=== PATIENT | female | born 1950 | race Caucasian/White ===

== ENCOUNTER 2018-05-05 13:10 | Outpatient (CLI) | payer MEDICARE ==
[2018-05-05 13:47] LABS: BASOPHILS # (AUTO) 0.1 K/uL (0.0-8.0); BASOPHILS % (AUTO) 0.7 % (0.0-2.0); EOSINOPHILS # (AUTO) 0.3 K/uL (0.0-0.7); EOSINOPHILS % (AUTO) 3.7 % (0.0-7.0); HEMATOCRIT 43.9 % (31.2-41.9); HEMOGLOBIN 15.2 g/dL (10.9-14.3); LYMPHOCYTES # (AUTO) 1.9 K/uL (20.0-40.0); MEAN CORPUSCULAR HEMOGLOBIN 34.7 uug (24.7-32.8); MEAN CORPUSCULAR HGB CONC 35 g/dL (32.3-35.6); MONOCYTES # (AUTO) 0.5 K/uL (2.0-10.0); MONOCYTES % (AUTO) 6.6 % (0.0-11.0); NEUTROPHILS # (AUTO) 4.7 K/uL (1.8-8.9); PLATELET COUNT (AUTO) 235 K/uL (179-408); RED BLOOD CELL COUNT(AUTO) 4.39 MIL/uL (3.63-4.92); WHITE BLOOD COUNT (AUTO) 7.5 K/uL (3.8-11.8)
[2018-05-05 13:50] LABS: CREATININE 0.8 mg/dL (0.6-1.3); POTASSIUM 4.3 mmol/L (3.5-5.1)
== END 2018-05-05 23:59 | disposition home or self-care (01) ==
LOC: LAB 13:10
DX: Z01.818 Encounter for other preprocedural examination (principal); H26.8 Other specified cataract
CPT/HCPCS: 36415; 85025

== ENCOUNTER 2019-02-01 01:41 | Emergency (ER) | payer MEDICARE ==
[~2019-02-01] VITALS: Ht 172.7 cm; Wt 121.1 kg
[2019-02-01] MEDS ORDERED: ONDANSETRON 4 MG/2 ML VIAL ONE (02:12)
[2019-02-01] MEDS ORDERED: MORPHINE SULFATE 4 MG/1 ML DISP.SYRIN ONE (02:12)
[2019-02-01] MEDS: MORPHINE SULFATE 4 MG/1 ML DISP.SYRIN IV ONE (02:14)
[2019-02-01] MEDS: ONDANSETRON 4 MG/2 ML VIAL IV ONE (02:14)
--- NOTE | 2019-02-01 02:26 | NUR ---
patient back from CT
--- NOTE | 2019-02-01 03:04 | NUR ---
Patient discharged to home in stable conditon. Written and verbal after care instructions given. Patient verbalizes understanding of instructions. exit care package and personal belongings taken with the patient. VSS. patient escorted out with Dr. Rebollar
[2019-02-01 03:05] VITALS: BP 133/77
[2019-02-01 03:08] LABS: BASOPHILS % (AUTO) 0.4 % (0.0-2.0); EOSINOPHILS # (AUTO) 0.3 K/uL (0.0-0.7); EOSINOPHILS % (AUTO) 4.6 % (0.0-7.0); HEMATOCRIT 42.7 % (31.2-41.9); HEMOGLOBIN 14.5 g/dL (10.9-14.3); LYMPHOCYTES # (AUTO) 1.8 K/uL (20.0-40.0); LYMPHOCYTES % (AUTO) 24.1 % (20.5-51.5); MEAN CORPUSCULAR HEMOGLOBIN 33.7 uug (24.7-32.8); MEAN CORPUSCULAR HGB CONC 34 g/dL (32.3-35.6); MEAN CORPUSCULAR VOLUME 99.5 fL (75.5-95.3); MONOCYTES # (AUTO) 0.5 K/uL (2.0-10.0); MONOCYTES % (AUTO) 6.6 % (0.0-11.0); NEUTROPHILS # (AUTO) 4.8 K/uL (1.8-8.9); NEUTROPHILS % (AUTO) 64.3 % (38.5-71.5); PLATELET COUNT (AUTO) 232 K/uL (179-408); RED BLOOD CELL COUNT(AUTO) 4.29 MIL/uL (3.63-4.92); WHITE BLOOD COUNT (AUTO) 7.5 K/uL (3.8-11.8)
[2019-02-01 03:19] LABS: BILIRUBIN,TOTAL 0.2 mg/dL (0.2-1.0); CREATININE 1.1 mg/dL (0.6-1.3); POTASSIUM 3.8 mmol/L (3.5-5.1); TOTAL PROTEIN, SERUM 7.4 g/dL (6.4-8.2)
[2019-02-01 04:11] LABS: THYROID STIMULATING HORMONE 4.965 mIU/mL (0.358-3.740)
== END 2019-02-01 03:06 | disposition home or self-care (01) ==
LOC: ER 01:43
DX: S79.912A Unspecified injury of left hip, initial encounter (principal); E03.9 Hypothyroidism, unspecified; W06.XXXA Fall from bed, initial encounter; Y93.89 Activity, other specified; Y92.89 Other specified places as the place of occurrence of the external cause; Y99.8 Other external cause status
CPT/HCPCS: 36415; 72192; 73502; 80053; 84443; 85025; 96374; 96375; 99284; J2270; J2405; A4663

== ENCOUNTER 2019-07-06 17:28 | Inpatient (IN) | payer MEDICARE ==
[~2019-07-06] VITALS: Ht 167.6 cm; Wt 88.9 kg
[2019-07-06 21:09] VITALS: BP 146/55
[2019-07-06] MEDS ORDERED: SENNOSIDES 1 TABLET PO SCH (21:45)
[2019-07-06] MEDS ORDERED: OXYCODONE HCL 5 MG TABLET PO SCH (21:45)
[2019-07-06] MEDS ORDERED: ACETAMINOPHEN 325 MG TABLET PO PRN (21:45)
[2019-07-06] MEDS ORDERED: ONDANSETRON HCL 4 MG TABLET PO PRN (21:45)
[2019-07-06] MEDS ORDERED: Z GUARD REMEDY PASTE 57 GM TUBE TOP PRN (22:00)
[2019-07-06] MEDS: OXYCODONE HCL 5 MG TABLET PO PRN (23:00)
--- NOTE | 2019-07-06 23:16 | NUR ---
Patient arrived with EMT at 19:15. Patient arrived with stable vitals, no signs of distress, no SOB, even labored breathing O2 saturation 96% room air. Skin warm and dry to touch. Patient is alert and oriented times 3 to 4 but forgetful. Initial patient assessment completed and notified Dr. Harrington and Dr. Green about new patient admission. Medication reconciliation completed after notifying Dr Green. Family, and daughter came to visit patient. Patient denies any abuse, but stated misunderstanding with . Patient is being followed by APS. Patient complains of 7/10 pain in her hips related to KERRIE, gave patient 5mg of Oxy to relieve pain. Safety measure and fall precautions are in place, low bed, bed alarm, bed rails x2, call light with patient reach. All needs are attended to and all items are within patient reach. . Addendum: 07/07/19 at 0033 by QI BROWN RN Patient arrived at 1950 not 1915
[2019-07-07] MEDS ORDERED: TRAZODONE 50 MG TABLET ONE (00:14)
[2019-07-07] MEDS: TRAZODONE 50 MG TABLET PO PRN ×2 (00:20→23:40)
--- NOTE | 2019-07-07 00:25 | NUR ---
Patient was given pain medication Oxy at 23:00 for pain 7/10 in both hips. Patient reassessed and medication was not effective. Gave patient Trazodone 50 mg 1 tablet as requested by patient.
[2019-07-07 04:30] VITALS: BP 143/66
[2019-07-07] MEDS: MIRALAX 17 GM POWD.PACK PO SCH (08:48)
[2019-07-07] MEDS: DOCUSATE SODIUM 100 MG CAPSULE PO SCH ×2 (08:48→16:40)
[2019-07-07] MEDS: OXYCODONE HCL 5 MG TABLET PO PRN ×2 (08:48→22:22)
[2019-07-07] MEDS: LIDOCAINE 5% PATCH TD SCH (08:49)
[2019-07-07] MEDS: ASPIRIN 81 MG TAB.CHEW PO SCH (08:51)
[2019-07-07] MEDS: LEVOTHYROXINE SODIUM 125 MCG TABLET PO SCH (08:52)
[2019-07-07] MEDS: CIPROFLOXACIN HCL 250 MG TABLET PO SCH ×2 (08:53→20:24)
[2019-07-07 09:00] VITALS: BP 123/56
[2019-07-07] MEDS ORDERED: POLYETHYLENE GLYCOL 3350 238 GM POWDER PO SCH (09:00)
[2019-07-07] MEDS ORDERED: LEVOTHYROXINE SODIUM 125 MCG TABLET PO SCH (09:00)
[2019-07-07] MEDS ORDERED: CIPROFLOXACIN HCL 250 MG TABLET PO SCH (12:15)
--- NOTE | 2019-07-07 12:35 | NUR ---
PSYCH EVAL IS ORDERED, DR BROWN IS AWARE Addendum: 07/07/19 at 1743 by YGPSY CHU RN RN INTELLIGENCE SPECIALIST KT HAS SEEN THE PATIENT AND IS AWARE OF PATIENT CONCERNS
--- NOTE | 2019-07-07 12:39 | NUR ---
PSYCHOLOGIST OLLIE RILEY MADE AWARE ABOUT PSYCHOLOGIST SESSION.
--- NOTE | 2019-07-07 13:07 | NUR ---
PATIENT IS ALERT, ORIENTED X3-4, VERBALLY RESPONSIVE, NO SOB, RESP EVEN NONLABORED,SKIN WARM AND DRY TO TOUCH, NO DISTRESS NOTED, PATIENT TOLERATED PT, OT WELL, SITTING AT THE EDGE OF THE BED, EATING LUNCH, SAT DOWN ON CHAIR WELL.
[2019-07-07 16:27] VITALS: BP 118/54
--- NOTE | 2019-07-07 17:44 | NUR ---
PATIENT IS EXAMINED BY DR ALCANTARA. PATIENT IS ALERT, ORIENTED X3-4, VERBALLY RESPONSIVE, NO SOB, RESP EVEN NONLABORED,SKIN WARM AND DRY TO TOUCH, NO DISTRESS NOTED, SITTING IN CHAIR, ASSISTED TO BATHROOM. MAX ASSIST WITH ADLS. NEEDS ATTENDED TIMELY, CALL LIGHT WITH IN REACH
--- NOTE | 2019-07-07 18:37 | NUR ---
PATIENT NOTED TRYING TO TRANSFER HERSELF FROM WHEELCHAIR TO BED, REENFORCED SAFETY MEASURES WITH PATIENT. REINFORCED TO WAIT FOR NURSE, CALL FOR HEATER WORKER, FOR SAFETY, WILL ENDORSE TO NEXT SHIFT ACCORDINGLY.
--- NOTE | 2019-07-07 21:02 | NUR ---
Patient received in bed resting, no signs of distress, no signs of SOB, patient denies any pain. No complaints at the time. Patient is alert and oriented time 4. Patient is verbally responsive and able to communicate her needs. Patient vitals stable, temperature 97.8 and blood pressure 125/58. Patient received her antibiotics. Patient is dry, skin intact and feet are elevated with two pillows and patient has SCD pump on. Patient was turned and repositioned onto her side. All safety measures in place, bed locked and in low position, side rails up x2, and call light within patient reach and bed alarm is on. Continue to monitor patient throughout the night.
[2019-07-07 21:27] VITALS: BP 125/58
--- NOTE | 2019-07-07 23:17 | NUR ---
Patient was in pain, patient states pain level 7/10 in her hips. Gave patient OXY 5 MG. Will continue to to assess pain level and keep patient comfortable.
--- NOTE | 2019-07-07 23:45 | NUR ---
Patient requested Trazodone for pain and to help her sleep through the night. Patient stated pain level 7/10 in her hips. Gave patient Trazodone at 2340. Attended to and provided patient with comfort measure to help alleviate pain, changed her positioned and provide more pillows around her. Patient is comfortable and resting in bed.
[2019-07-08 04:35] VITALS: BP 146/69
--- NOTE | 2019-07-08 06:45 | NUR ---
Patient slept well. Vital signs are stable patient showed no signs of acute distress. Fall precautions in place, low position, locked, x2 rails, bed alarm on, and patient call light within reach. Continue plan of care will endorse the report to the next shift.
[2019-07-08] MEDS: LEVOTHYROXINE SODIUM 125 MCG TABLET PO SCH (06:56)
[2019-07-08] MEDS: MIRALAX 17 GM POWD.PACK PO SCH (08:33)
[2019-07-08] MEDS: OXYCODONE HCL 5 MG TABLET PO PRN (08:33)
[2019-07-08] MEDS: DOCUSATE SODIUM 100 MG CAPSULE PO SCH ×2 (08:33→17:00)
[2019-07-08] MEDS: ASPIRIN 81 MG TAB.CHEW PO SCH (08:33)
[2019-07-08] MEDS: LIDOCAINE 5% PATCH TD SCH (08:34)
[2019-07-08] MEDS: CIPROFLOXACIN HCL 250 MG TABLET PO SCH ×2 (08:44→20:33)
[2019-07-08 09:00] VITALS: BP 128/75
[2019-07-08] MEDS: IBUPROFEN 200 MG TABLET PO PRN (13:30)
--- NOTE | 2019-07-08 15:41 | NUR ---
PATIENT IS ALERT, ORIENTED X4, VERBALLY RESPONSIVE, NO SOB, RESP EVEN NONLABORED,SKIN WARM AND DRY TO TOUCH, NO DISTRESS NOTED, PATIENT STAYED IN CHAIR MOST OF THE TIME, ASSISTED TO THE BATHROOM,TOLERATED PT, OT SERVICES WELL, AMBULATED WITH PT, ABLE TO TRANSFER WITH SUPERVISION FROM WHEELCHAIR TO BED, VISE VERSA, WHEELCHAIR TO TOILET SEAT, KEPT PATIENT CLEAN AND DRY, NO SKIN ISSUES NOTED AT THIS TIME, ABLE TO COMMUNICATE HER NEEDS WELL, REINFORCED SAFETY PRECAUTIONS, PATIENT VERBALIZED UNDERSTANDING OF IT.
[2019-07-08 18:32] VITALS: BP 128/70
--- NOTE | 2019-07-08 19:35 | NUR ---
Sleeping during initial rounds. No s/s of respiratory distress. Safety measure and fall precaution maintained. Continue care as planned.
[2019-07-08 19:47] VITALS: BP 114/40
[2019-07-08] MEDS: TRAZODONE 50 MG TABLET PO PRN (20:33)
[2019-07-09] MEDS: OXYCODONE HCL 5 MG TABLET PO PRN ×4 (00:45→20:08)
[2019-07-09 05:42] VITALS: BP 133/58
--- NOTE | 2019-07-09 05:45 | NUR ---
Shift End Report: VS stable. Medicated once for (L) hip pain with relief. No further complaint presented. Good skin/butch care rendered after each B/B incontinence. Skin remain intact. No s/s of adverse reaction noted from Cipro medication. Encouraged increased oral fluid intake as tolerated. All needs attended and met. Slept in between care. No significant event reported all night. Continue current rehab plan of care..
[2019-07-09] MEDS: LEVOTHYROXINE SODIUM 125 MCG TABLET PO SCH (06:13)
[2019-07-09] MEDS: DOCUSATE SODIUM 100 MG CAPSULE PO SCH ×2 (08:48→16:24)
[2019-07-09] MEDS: ASPIRIN 81 MG TAB.CHEW PO SCH (08:48)
[2019-07-09] MEDS: MIRALAX 17 GM POWD.PACK PO SCH (08:49)
[2019-07-09] MEDS: CIPROFLOXACIN HCL 250 MG TABLET PO SCH ×2 (08:49→20:08)
[2019-07-09] MEDS: LIDOCAINE 5% PATCH TD SCH (08:49)
[2019-07-09 10:43] VITALS: BP 136/43
--- NOTE | 2019-07-09 13:05 | NUR ---
Received patient awake in bed. Apert and orientedx3-4. Hard of hearing, in stable condition. Assisted to bathroom with walker. Continue therapy for increase endurance and strenght, participates in ADL. tolerated well. Continue pain management prior to therapy and if needed. Patient verbalize that she feels progress in therapy. Seen and examined by psychologist this morning. no new order. Continue on fall risk precaution maintained. will continue monitor
--- NOTE | 2019-07-09 13:31 | NUR ---
INTERDISCIPLINARY TEAM CONFERENCE
--- NOTE | 2019-07-09 13:47 | NUR ---
INDIVIDUALIZED PLAN OF CARE
[2019-07-09] MEDS: IBUPROFEN 200 MG TABLET PO PRN (15:31)
[2019-07-09 16:47] VITALS: BP 116/40
--- NOTE | 2019-07-09 19:55 | NUR ---
Received patient in bed. AAO x3. Not in acute distress or SOB. On room air. Able to make needs known. Complained of pain on her right hip and knee, rated 6/10. Physical assessment done. Fall prevention observed. Safety measures maintained. Bed in low and lock position, side rails up x2 for safety. Call light and frequently used items within reach. Continue to monitor.
[2019-07-09 20:27] VITALS: BP 121/58
[2019-07-10 05:01] VITALS: BP 100/40
--- NOTE | 2019-07-10 05:13 | NUR ---
End of the shift note: Patient was stable throughout the shift and have a good sleep during the night. Not in acute distress or SOB. On room air. Complained of pain on her right hip and knee, rated 5/10, Oxycodone 5 mg administered and effective. DVT Pump in place. Assisted her to the bathroom as needed. Kept her clean and dry. Physical assessment done. All due medication given and well tolerated. All needs attended promptly. Fall prevention observed. Safety measures maintained. Bed in low and lock position, side rails up x2 for safety. Call light and frequently used items within reach. Continue to monitor and will endorse to oncoming nurse accordingly.
[2019-07-10] MEDS: LEVOTHYROXINE SODIUM 125 MCG TABLET PO SCH (06:37)
[2019-07-10 08:00] VITALS: BP_SYST 115; BP_SYST 116; BP_DIAS 50; BP_DIAS 60
[2019-07-10] MEDS: ASPIRIN 81 MG TAB.CHEW PO SCH (09:02)
[2019-07-10] MEDS: DOCUSATE SODIUM 100 MG CAPSULE PO SCH ×2 (09:03→16:30)
[2019-07-10] MEDS: CIPROFLOXACIN HCL 250 MG TABLET PO SCH ×2 (09:04→20:23)
[2019-07-10] MEDS: LIDOCAINE 5% PATCH TD SCH (09:04)
[2019-07-10] MEDS: MIRALAX 17 GM POWD.PACK PO SCH (09:04)
[2019-07-10] MEDS: OXYCODONE HCL 5 MG TABLET PO PRN ×2 (10:02→22:45)
[2019-07-10 17:16] VITALS: BP 119/57
--- NOTE | 2019-07-10 18:36 | NUR ---
Patient is AAO x 3-4 with episodes of forgetfulness noted during care. NO SOB or any acute distress noted. Vital signs taken and stable for patient. Afebrile. Due medications administered as ordered and scheduled and tolerated well. Patient on OXYIR 5mg PO Q 6hrs PRN for pain mgnt; administered medication before PT/OT x 1 during shift and effective. Patient is with one person max assist and BRP during shift. Able to ambulate with a walker and uses w/c. Skin kept clean and dry. Needs attended and met, safety measures in place, call light left at bed side and will continue with care.
--- NOTE | 2019-07-10 19:42 | NUR ---
Received patient in bed. AAO x3. Not in acute distress or SOB. On room air. Able to make needs known. No Complain of pain at this time. Physical assessment done. Fall prevention observed. Safety measures maintained. Bed in low and lock position, side rails up x2 for safety. Call light and frequently used items within reach. Continue to monitor.
[2019-07-10 20:09] VITALS: BP 122/36
[2019-07-11 04:29] VITALS: BP 125/52
[2019-07-11] MEDS: LEVOTHYROXINE SODIUM 125 MCG TABLET PO SCH (06:09)
--- NOTE | 2019-07-11 06:20 | NUR ---
End of the shift note: Patient was stable throughout the shift and have a good sleep during the night. Not in acute distress or SOB. On room air. Complained of pain on her right hip and knee, rate 7/10, Oxycodone 5 mg administered and effective. DVT Pump in place. Assisted her to the bathroom as needed. Kept her clean and dry. Physical assessment done. All due medication given and well tolerated. All needs attended promptly. Fall prevention observed. Safety measures maintained. Bed in low and lock position, side rails up x2 for safety. Call light and frequently used items within reach. Continue to monitor and will endorse to oncoming nurse accordingly.
[2019-07-11] MEDS: DOCUSATE SODIUM 100 MG CAPSULE PO SCH ×2 (08:41→17:24)
[2019-07-11] MEDS: LIDOCAINE 5% PATCH TD SCH (08:41)
[2019-07-11] MEDS: MIRALAX 17 GM POWD.PACK PO SCH (08:41)
[2019-07-11] MEDS: CIPROFLOXACIN HCL 250 MG TABLET PO SCH ×2 (08:41→20:07)
[2019-07-11] MEDS: ASPIRIN 81 MG TAB.CHEW PO SCH (08:42)
[2019-07-11] MEDS: OXYCODONE HCL 5 MG TABLET PO PRN ×3 (08:42→23:23)
[2019-07-11 09:00] VITALS: BP 122/60
[2019-07-11] MEDS ORDERED: LORAZEPAM 1 MG TABLET PO ONE (14:45)
--- NOTE | 2019-07-11 16:28 | NUR ---
one time order of ativan 1 mg po given for patient agitation and crying per Ar[facility] LAST MARKER orders
[2019-07-11 18:55] VITALS: BP 114/57
[2019-07-11 19:54] VITALS: BP 102/83
--- NOTE | 2019-07-11 20:01 | NUR ---
Received patient sitting in wheelchair. AAO x3. Not in acute distress or SOB. On room air. Able to make needs known. Complained of mild pain at this time. Physical assessment done. Fall prevention observed. Safety measures maintained. Bed in low and lock position, side rails up x2 for safety. Call light and frequently used items within reach. Continue to monitor.
[2019-07-12] MEDS: IBUPROFEN 200 MG TABLET PO PRN (04:07)
[2019-07-12 04:39] VITALS: BP 116/40
[2019-07-12] MEDS: LEVOTHYROXINE SODIUM 125 MCG TABLET PO SCH (06:11)
--- NOTE | 2019-07-12 07:26 | NUR ---
patient noted resting in bed with eyes closed, no facial cues of pain at this time, no signs of distress noted, call light in reach, bed locked and in lowest position, all needs met
[2019-07-12] MEDS: MIRALAX 17 GM POWD.PACK PO SCH (08:04)
[2019-07-12] MEDS: ASPIRIN 81 MG TAB.CHEW PO SCH (08:04)
[2019-07-12] MEDS: DOCUSATE SODIUM 100 MG CAPSULE PO SCH ×2 (08:04→17:00)
[2019-07-12] MEDS: LIDOCAINE 5% PATCH TD SCH (08:04)
[2019-07-12] MEDS: CIPROFLOXACIN HCL 250 MG TABLET PO SCH (08:05)
[2019-07-12] MEDS: OXYCODONE HCL 5 MG TABLET PO PRN ×2 (08:05→21:04)
[2019-07-12 09:00] VITALS: BP 113/57
--- NOTE | 2019-07-12 15:05 | NUR ---
Social Work Note: HAYDEN submitted an Adult Protective Services Report (Intake ID [id number]) on 07/08/2019 at 2:13 PM.
--- NOTE | 2019-07-12 19:23 | NUR ---
BM noted today
--- NOTE | 2019-07-12 19:32 | NUR ---
RECEIVED PATIENT IN BED, ALERT AND VERBALLY RESPONSIVE. AFEBRILE. NO RESPIRATORY OR ACUTE DISTRESS. ABLE TO MAKE NEEDS KNOWN. NO COMPLAINTS OF PAIN AT THIS TIME. WILL CONTINUE TO MONITOR PATIENT AND OBSERVE FALL AND SAFETY PRECAUTIONS.
[2019-07-12 19:33] VITALS: BP 117/55
[2019-07-12 20:30] VITALS: BP 143/63
[2019-07-13] MEDS: OXYCODONE HCL 5 MG TABLET PO PRN ×2 (05:12→20:30)
--- NOTE | 2019-07-13 05:49 | NUR ---
PATIENT HAD INTERMITTENT SLEEP DURING THE NIGHT. ASSISTED TO BATHROOM AND ALSO CHANGING OF INCONTINENCE PADS. KEPT PATIENT WARM, DRY, CLEAN, AND COMFORTABLE. HAD REPORTS OF PAIN FOR BILATERAL HIP, OXYCODONE GIVEN ORDERED. TOLERATED WELL. NOTED WITH EFFECT. FALL AND SAFETY PRECAUTIONS OBSERVED. ALL NEEDS ATTENDED.
[2019-07-13] MEDS: LEVOTHYROXINE SODIUM 125 MCG TABLET PO SCH (06:07)
[2019-07-13 06:10] VITALS: BP 136/57
[2019-07-13 08:00] VITALS: BP 126/53
[2019-07-13] MEDS: DOCUSATE SODIUM 100 MG CAPSULE PO SCH ×2 (09:10→17:36)
[2019-07-13] MEDS: IBUPROFEN 200 MG TABLET PO PRN (09:10)
[2019-07-13] MEDS: ASPIRIN 81 MG TAB.CHEW PO SCH (09:10)
[2019-07-13] MEDS: MIRALAX 17 GM POWD.PACK PO SCH (09:10)
[2019-07-13] MEDS: LIDOCAINE 5% PATCH TD SCH (09:10)
[2019-07-13 16:31] VITALS: BP 146/66
[2019-07-13 20:00] VITALS: BP 131/49
[2019-07-14] MEDS: OXYCODONE HCL 5 MG TABLET PO PRN ×2 (04:05→17:52)
[2019-07-14 05:38] VITALS: BP 151/71
[2019-07-14] MEDS: LEVOTHYROXINE SODIUM 125 MCG TABLET PO SCH (06:44)
[2019-07-14] MEDS: ASPIRIN 81 MG TAB.CHEW PO SCH (08:32)
[2019-07-14] MEDS: LIDOCAINE 5% PATCH TD SCH (08:32)
[2019-07-14] MEDS: DOCUSATE SODIUM 100 MG CAPSULE PO SCH ×3 (08:32→17:00)
[2019-07-14] MEDS: MIRALAX 17 GM POWD.PACK PO SCH ×2 (08:32→08:38)
[2019-07-14] MEDS: IBUPROFEN 200 MG TABLET PO PRN (14:44)
--- NOTE | 2019-07-14 16:42 | NUR ---
NO DISTRESS NOTED, TOLERATED MEALS WELL
[2019-07-14 16:48] VITALS: BP 133/76
--- NOTE | 2019-07-14 19:27 | NUR ---
PATIENT COMPLAINED DYSURIA, AND URGENCY, ORDER OBTAINED FOR URINALYSIS.
[2019-07-14 20:45] VITALS: BP 142/71
--- NOTE | 2019-07-15 00:29 | NUR ---
resting in bed upon rounds. AAOx4 OOB with walker to the BR. Voiding freely. Needs attended. VSS. Denies any pain nor any discomfort. Kept comfortable. Will monitor patient.
[2019-07-15 05:31] VITALS: BP 140/66
[2019-07-15] MEDS: LEVOTHYROXINE SODIUM 125 MCG TABLET PO SCH (06:38)
--- NOTE | 2019-07-15 07:28 | NUR ---
slept well most of the shift. aaox4 VSS. Patient having periods of incontinence of urine x2. Kept clean and dry. Needs attended. Fall precautions maintained. Denies any pain nor any discomfort.
[2019-07-15 08:00] VITALS: BP 121/58
[2019-07-15] MEDS: ASPIRIN 81 MG TAB.CHEW PO SCH (08:02)
[2019-07-15] MEDS: MIRALAX 17 GM POWD.PACK PO SCH (08:03)
[2019-07-15] MEDS: OXYCODONE HCL 5 MG TABLET PO PRN ×3 (08:03→23:48)
[2019-07-15] MEDS: LIDOCAINE 5% PATCH TD SCH (08:03)
[2019-07-15] MEDS: DOCUSATE SODIUM 100 MG CAPSULE PO SCH ×2 (08:03→16:41)
[2019-07-15 09:31] LABS: *BILIRUBIN,URIN NEGATIVE (NEGATIVE); *BLOOD, URINE NEGATIVE (NEGATIVE); *CLARITY,URINE CLEAR (CLEAR); *COLOR,URINE YELLOW (YELLOW); *KETONES,URINE NEGATIVE (NEGATIVE); LEUKOCYTE ESTERASE ,URINE NEGATIVE (NEGATIVE); NITRITE, URINE NEGATIVE (NEGATIVE); PH,URINE 7.5 (5.0-8.0); UGLUCOSE NEGATIVE (NEGATIVE)
--- NOTE | 2019-07-15 11:40 | NUR ---
Received patient awake in bed in stable condition. Clean catch urine collected sent to lab around 8am. Result came back negative of urinalysis. awaiting for culture. Patient continue therapy for increase strenght and endurance. Continue pain management and given this morning prior to therapy tolerated and responsive to therapy. not in distress. will continue monitor
[2019-07-15 16:00] VITALS: BP 129/62
[2019-07-15] MEDS: IBUPROFEN 200 MG TABLET PO PRN (17:39)
[2019-07-15 20:24] VITALS: BP 113/57
--- NOTE | 2019-07-15 21:43 | NUR ---
resting in bed upon initial rounds. aaox4 needs attended. VSS. Kept comfortable. OOB to the BR with walker. Voiding freely. Will monitor patient. Fall precautions maintained. Denies any pain nor any discomfort.
[2019-07-16 05:32] VITALS: BP 124/51
[2019-07-16] MEDS: LEVOTHYROXINE SODIUM 125 MCG TABLET PO SCH (06:28)
[2019-07-16] MEDS: OXYCODONE HCL 5 MG TABLET PO PRN ×3 (06:30→20:32)
[2019-07-16 08:00] VITALS: BP 127/82
[2019-07-16] MEDS: MIRALAX 17 GM POWD.PACK PO SCH (08:30)
[2019-07-16] MEDS: LIDOCAINE 5% PATCH TD SCH (08:30)
[2019-07-16] MEDS: DOCUSATE SODIUM 100 MG CAPSULE PO SCH ×2 (08:30→16:50)
[2019-07-16] MEDS: ASPIRIN 81 MG TAB.CHEW PO SCH (08:30)
--- NOTE | 2019-07-16 14:37 | NUR ---
INTERDISCIPLINARY TEAM CONFERENCE
[2019-07-16 16:00] VITALS: BP 144/59
[2019-07-16 20:04] VITALS: BP 119/69
--- NOTE | 2019-07-16 20:49 | NUR ---
Received pt resting in bed. AAO x4. No acute distress noted. C/o 7/10 pain on bilateral hips, PRN pain med given as ordered. Assisted to the bathroom x2, standby assist. Safety measures maintained. Call light and personal items within reach. Will continue to monitor.
[2019-07-16] MEDS: IBUPROFEN 200 MG TABLET PO PRN (21:42)
[2019-07-16] MEDS: TRAZODONE 50 MG TABLET PO PRN (23:35)
[2019-07-17] MEDS: OXYCODONE HCL 5 MG TABLET PO PRN ×3 (02:33→21:05)
[2019-07-17] MEDS: IBUPROFEN 200 MG TABLET PO PRN ×4 (04:03→23:17)
[2019-07-17 04:10] VITALS: BP 118/60
[2019-07-17] MEDS: LEVOTHYROXINE SODIUM 125 MCG TABLET PO SCH (06:13)
[2019-07-17] MEDS: ASPIRIN 81 MG TAB.CHEW PO SCH (08:11)
[2019-07-17] MEDS: LIDOCAINE 5% PATCH TD SCH (08:11)
[2019-07-17] MEDS: DOCUSATE SODIUM 100 MG CAPSULE PO SCH ×2 (08:11→17:00)
[2019-07-17] MEDS: MIRALAX 17 GM POWD.PACK PO SCH (08:14)
[2019-07-17 10:40] VITALS: BP 100/41
[2019-07-17 16:50] VITALS: BP 116/46
--- NOTE | 2019-07-17 18:51 | NUR ---
Pt received this morning sitting in bed, assessed pain 8/10 reported, PRN pain medication administered per MD orders. Pt reported effective with the use of routinely scheduled lidocaine patch. Pt assisted to toilet with walkerx4 for voiding. Pt refused stool softeners due to loose stool earlier. Pt states "arthritic pain could have been caused from not getting up from bed as frequently at night." Pt compliant with medications. All comfort and safety needs attended to throughout the shift. Call light and personal items placed within reach. VSS. Will continue to monitor and endorse.
--- NOTE | 2019-07-17 19:35 | NUR ---
In bed, awake, watching TV, presented complaint of both hip pain at this time, requesting Motrin to relieve the pain, given as ordered and needed with pudding. Safety measures and fall precaution maintained. Continue care as planned.
[2019-07-17 20:09] VITALS: BP 112/37
--- NOTE | 2019-07-17 21:06 | NUR ---
Patient called, crying, complaining of both LE sharp pain. OXyIr given as ordered and needed. Will monitor.
[2019-07-18] MEDS: OXYCODONE HCL 5 MG TABLET PO PRN ×3 (03:15→16:42)
[2019-07-18] MEDS: IBUPROFEN 200 MG TABLET PO PRN ×2 (06:04→20:52)
[2019-07-18] MEDS: LEVOTHYROXINE SODIUM 125 MCG TABLET PO SCH (06:07)
[2019-07-18 06:37] VITALS: BP 125/61
--- NOTE | 2019-07-18 06:55 | NUR ---
Shift End Report: VS stable. Medicated 4x for pain the whole night with relief. Slept in between care. All needs attended and met. No significant event reported all night. Continue current rehab plan of care.
[2019-07-18 08:00] VITALS: BP 110/58
[2019-07-18] MEDS: LIDOCAINE 5% PATCH TD SCH (08:14)
[2019-07-18] MEDS: ASPIRIN 81 MG TAB.CHEW PO SCH (08:14)
[2019-07-18] MEDS: MIRALAX 17 GM POWD.PACK PO SCH (08:14)
[2019-07-18] MEDS: DOCUSATE SODIUM 100 MG CAPSULE PO SCH ×2 (08:14→16:43)
--- NOTE | 2019-07-18 15:04 | NUR ---
Pt received crying in bed stating, stating she is frustrated and has pain 9/10 to her hips and lower back. PRN Oxycodone administered per MD orders. Warm blanket and scheduled Lidocaine patch applied. Pain relief reported effective. Pt AAOx3-4, able to make needs known, sat up in wheelchair for meals. Pt compliant with medication administration and therapies as offered. Pt showered. All comfort and safety measures implemented. Pt assisted to walk to toilet for voiding x3 and returned to bed standby assist. Bed in locked and lowest position with side rails up x2, alarm on, call light and personal items placed within reach. Will continue to monitor.
[2019-07-18 16:00] VITALS: BP 138/64
--- NOTE | 2019-07-18 19:45 | NUR ---
Received patient in bed. AAO x4. Not in acute distress or SOB. On room air. Able to make needs known. No Complain of pain at this time. Physical assessment done. Fall prevention observed. Safety measures maintained. Bed in low and lock position, side rails up x2 for safety. Call light and frequently used items within reach. Continue to monitor.
[2019-07-18 20:09] VITALS: BP 112/55
[2019-07-19] MEDS: OXYCODONE HCL 5 MG TABLET PO PRN ×2 (00:54→08:55)
--- NOTE | 2019-07-19 04:46 | NUR ---
End of the shift note: Patient was stable throughout the shift and have a good sleep during the night. Not in acute distress or SOB. On room air. Complained of pain on her right hip and knee, rate 9/10, Oxycodone 5 mg administered and effective. Assisted her to the bathroom as needed. Kept her clean and dry. Physical assessment done. All due medication given and well tolerated. All needs attended promptly. Fall prevention observed. Safety measures maintained. Bed in low and lock position, side rails up x2 for safety. Call light and frequently used items within reach. Continue to monitor and will endorse to oncoming nurse accordingly.
[2019-07-19] MEDS: LEVOTHYROXINE SODIUM 125 MCG TABLET PO SCH (06:41)
[2019-07-19 06:47] VITALS: BP 133/46
--- NOTE | 2019-07-19 07:40 | NUR ---
Received patient in room awake,Patient is AAO x 4. NO acute distress noted. Vital signs stable for patient. Complains of pain 6/10 at this time will medicate patient as ordered. patient ambulatory with a walker and 1 person assist. Safety measures in place, needs attended, call light left at bed side and will continue with care
[2019-07-19 07:47] VITALS: BP 128/49
[2019-07-19] MEDS: DOCUSATE SODIUM 100 MG CAPSULE PO SCH (08:53)
[2019-07-19] MEDS: ASPIRIN 81 MG TAB.CHEW PO SCH (08:53)
[2019-07-19] MEDS: LIDOCAINE 5% PATCH TD SCH (08:54)
[2019-07-19] MEDS: MIRALAX 17 GM POWD.PACK PO SCH (08:56)
[2019-07-19 12:25] VITALS: BP 120/63
--- NOTE | 2019-07-19 13:00 | NUR ---
Discharge notes: Patient asked to be discharged home stating "I want to go home today, right now, I can do this at home" and stated she can do out-patient therapy. Patient is AAO x 4. No acute distress noted. Afebrile. Vital signs stable for patient. Informed Dr. Linder and Dr. Harrington. TMS done and medications verified and signed by Dr. Linder. Discharge teaching given to patient regarding medications, future plan of care. Informed patient to F/UP with PCP and HH for further health care. Patient verbalized understanding of discharge teachings and stated will call her primary MD if with any questions. Prescriptions faxed to pharmacy of choice. patient refused taking pictures because she was such in a hurry. All paper works signed by patient. Belongings list verified and singed inventory paper and all belongings taken by patient. All other needs and questions attended. Patient thanked for the care provided and assisted and wheeled out by PT. Patient picked up by son and left at 12:45PM.
--- NOTE | 2019-07-19 13:38 | NUR ---
Dr. Harrington signed prescription for Percocet for pain mgnt. patient aware that MD will write prescription and stated family will pick it up.
== END 2019-07-19 12:45 | disposition home health service (06) | DRG 871 ==
PROVIDERS: ADMIT Physical Medicine & Rehabilitation Pain Medicine; ATTEND Physical Medicine & Rehabilitation Pain Medicine
DX: A41.9 Sepsis, unspecified organism (principal); G92 Toxic encephalopathy; D68.59 Other primary thrombophilia; N12 Tubulo-interstitial nephritis, not specified as acute or chronic; D63.8 Anemia in other chronic diseases classified elsewhere; E03.9 Hypothyroidism, unspecified; M19.011 Primary osteoarthritis, right shoulder; E66.9 Obesity, unspecified; F43.20 Adjustment disorder, unspecified; F32.9 Major depressive disorder, single episode, unspecified; G47.00 Insomnia, unspecified; Z91.81 History of falling; Z96.643 Presence of artificial hip joint, bilateral; R53.1 Weakness; Z91.411 Personal history of adult psychological abuse
CPT/HCPCS: 87086; A4663